=== PATIENT | male | born 1965 | race Caucasian/White ===

== ENCOUNTER 2021-02-25 14:14 | Emergency (ER) | payer SELFPAY ==
[~2021-02-25] VITALS: Ht 188 cm; Wt 90.9 kg
--- NOTE | 2021-02-25 15:42 | RAD ---
AP, lateral, and oblique views of the left ankle were obtained. History: Reason: injury, swelling / Spl. Instructions: / History: Comparison: none. No fracture, dislocation, or soft tissue swelling is seen. The mortise is intact and there is no wid ening of the distal tibiofibular space. There is degenerative spurring of the calcaneus. There is als o significant degenerative change in the midfoot. Electronically signed by: Goyo Frey MD (02/25/2021 3:40 PM) [facility]
--- NOTE | 2021-02-25 16:52 | RAD ---
Left hand 3 views, left humerus 2 views, left forearm 2 views History: Pain after a fall Left humerus 2 views were taken of the left humerus. There is not evidence of an acute fracture or osseous abnorma lity. The elbow is incompletely evaluated. There is no dislocation at the shoulder. Left forearm 2 views were taken of the left forearm. There is mild spurring and arthritis at the elbow. A small dianelys int body is possible. There is no acute fracture. There is no fracture noted in the left forearm. Left hand 2 views were taken of the left hand. There is not evidence of an acute fracture or osseous abnormalit y. IMPRESSION: 1. No acute osseous abnormality is noted in the left hand. 2. No fracture or acute osseous abnormality in the left forearm. 3. Mild arthritis left wrist. 4. No fracture noted in the left humerus. Electronically signed by: Ayaan Head MD (02/25/2021 4:50 PM) [facility]
--- NOTE | 2021-02-25 17:08 | PHYS DOC ---
Past History Additional Past Medical Histor: UNKNOWN Past Surgical History: No Surgical History Alcohol Use: None General Adult EDM: Chief Complaint: FOOT INJURY PAIN HPI: HPI: Patient is a male coming in via EMS for foot pain. Patient states he fell and has pain in his left arm, hand, and twisted his left ankle. No other injuries. Review of Systems: Review of Systems: All other systems within normal limits except for as noted in the HPI Allergies: Allergies: Allergies Coded Allergies Type Severity Reaction Last Updated Verified No Known Drug Allergies 02/25/21 No Physical Exam: PE: Constitutional: Well developed, well nourished, no acute distress, non-toxic appearance. [] HENT: Normocephalic, atraumatic, bilateral external ears normal, nose normal. [] Eyes: PERRLA, conjunctiva normal, no discharge. [] Neck: No rigidity, supple, no stridor. [] Cardiovascular: Regular rate and rhythm, brisk cap refill [] Lungs & Thorax: Non labored symmetric respirations, no tachypnea or respiratory distress [] Abdomen: Soft, nondistended. Skin: Warm, dry, no erythema, no rash. [] Back: Unremarkable Extremities: No deformities, range of motion grossly intact, no lower extremity edema. Slight swelling of left ankle, no tenderness of her foot or deformities. No obvious deformity or swelling over left upper arm, tenderness over hand and shoulder. [] Neurologic: Alert and oriented X 3, no focal deficits noted. [] Psychologic: Affect normal, judgement normal, mood normal. [] Current Patient Data: Labs: Laboratory Tests Test 02/25/21 17:00 Glucose (Fingerstick) 175 mg/dL (70-99) H Vital Signs: Vital Signs Date Time Temp Pulse Resp B/P (MAP) Pulse Ox O2 Delivery O2 Flow Rate FiO2 02/25/21 15:02 98.6 86 18 189/115 99 Room Air EKG: EKG: [] Radiology/Procedures: Radiology/Procedures: [address] [address] IMAGING REPORT Signed PATIENT: YINA CARROLL ACCOUNT: [id number] : 1965 LOCATION: ER AGE: 56 SEX: M EXAM STATUS: PRE ER ORD. PHYSICIAN: JOSE SEQUEIRA MD REASON: fall PROCEDURE: HUMERUS LEFT Left hand 3 views, left humerus 2 views, left forearm 2 views History: Pain after a fall Left humerus 2 views were taken of the left humerus. There is not evidence of an acute fracture or osseous abnormality. The elbow is incompletely evaluated. There is no dislocation at the shoulder. Left forearm 2 views were taken of the left forearm. There is mild spurring and arthritis at the elbow. A small joint body is possible. There is no acute fracture. There is no fracture noted in the left forearm. Left hand 2 views were taken of the left hand. There is not evidence of an acute fracture or osseous abnormality. IMPRESSION: 1. No acute osseous abnormality is noted in the left hand. 2. No fracture or acute osseous abnormality in the left forearm. 3. Mild arthritis left wrist. 4. No fracture noted in the left humerus. Electronically signed by: Ayaan Head MD (02/25/2021 4:50 PM) [facility] DICTATED AND SIGNED BY: AYAAN HEAD MD DATE: 02/25/21 163 CC: JOSE SEQUEIRA MD; PCP,UNKNOWN ~MTH0 0 [][place] [address] IMAGING REPORT Signed PATIENT: YINA CARROLL ACCOUNT: [id number] : 1965 LOCATION: ER AGE: 56 SEX: M EXAM STATUS: PRE ER ORD. PHYSICIAN: JOSE SEQUEIRA MD REASON: injury, swelling PROCEDURE: ANKLE LEFT 3V AP, lateral, and oblique views of the left ankle were obtained. History: Reason: injury, swelling / Spl. Instructions: / History: Comparison: none. No fracture, dislocation, or soft tissue swelling is seen. The mortise is intact and there is no widening of the distal tibiofibular space. There is degenerative spurring of the calcaneus. There is also significant degenerative change in the midfoot. Electronically signed by: Goyo Frey MD (02/25/2021 3:40 PM) [facility] DICTATED AND SIGNED BY: GOYO FREY MD DATE: 02/25/21 1539 CC: JOSE SEQUEIRA MD; PCP,UNKNOWN ~MTH0 0 Heart Score: C/O Chest Pain: No Risk Factors: Risk Factors: DM, Current or recent (<one month) smoker, HTN, HLP, family history of CAD, obesity. Risk Scores: Score 0 - 3: 2.5% MACE over next 6 weeks - Discharge Home Score 4 - 6: 20.3% MACE over next 6 weeks - Admit for Clinical Observation Score 7 - 10: 72.7% MACE over next 6 weeks - Early Invasive Strategies Course & Med Decision Making: Course & Med Decision Making Pertinent Labs and Imaging studies reviewed. (See chart for details) [] Dragon Disclaimer: Dragon Disclaimer: This electronic medical record was generated, in whole or in part, using a voice recognition dictation system. Departure Departure: Impression: Primary Impression: Fall Additional Impression: Left ankle sprain Disposition: 01 HOME / SELF CARE / HOMELESS Condition: STABLE Referrals: PCP,UNKNOWN (PCP) Patient Instructions: RICE - Routine Care for Injuries, [id number] Additional Instructions: Tylenol and Motrin as needed for pain JOSE SEQUEIRA MD Feb 25, 2021 17:08
[2021-02-25 17:09] VITALS: BP 168/114
[2021-02-25] MEDS ORDERED: IBUPROFEN 600 MG TABLET. PO ONE (17:15)
== END 2021-02-25 17:35 | disposition home or self-care (01) ==
LOC: ER 14:14
DX: S93.402A Sprain of unspecified ligament of left ankle, initial encounter (principal); M79.602 Pain in left arm; M79.642 Pain in left hand; W18.39XA Other fall on same level, initial encounter; Y93.89 Activity, other specified; Y92.89 Other specified places as the place of occurrence of the external cause; Y99.8 Other external cause status
CPT/HCPCS: 73060; 73090; 73120; 73610; 82947; 99284

== ENCOUNTER 2021-02-26 14:21 | Emergency (ER) | payer SELFPAY ==
[~2021-02-26] VITALS: Ht 177.8 cm; Wt 95.4 kg
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
[2021-02-26 17:58] VITALS: BP 142/84
== END 2021-02-26 18:01 | disposition home or self-care (01) ==
LOC: ER 14:21
DX: M25.572 Pain in left ankle and joints of left foot (principal); W18.39XA Other fall on same level, initial encounter; Y93.01 Activity, walking, marching and hiking; Y92.89 Other specified places as the place of occurrence of the external cause; Y99.8 Other external cause status
CPT/HCPCS: 99284